=== PATIENT | female | born 1960 | race African-American/Black ===

== ENCOUNTER 2016-12-03 17:04 | Outpatient (RCR) | payer OTHER | END 2016-12-08 | disposition home or self-care (01) | LOC: PTY 17:04 | DX: M72.2 Plantar fascial fibromatosis (principal); M76.00 Gluteal tendinitis, unspecified hip; M76.9 Unspecified enthesopathy, lower limb, excluding foot ==

== ENCOUNTER 2016-12-15 16:55 | Outpatient (RCR) | payer OTHER | END 2017-01-05 | disposition home or self-care (01) | LOC: PTY 16:55 | DX: M72.2 Plantar fascial fibromatosis (principal); M76.00 Gluteal tendinitis, unspecified hip; M76.9 Unspecified enthesopathy, lower limb, excluding foot ==

== ENCOUNTER → 2017-10-07 | Outpatient (RCR) | payer OTHER | END | disposition home or self-care (01) | LOC: PTY 16:00 | DX: M76.9 Unspecified enthesopathy, lower limb, excluding foot (principal); M67.02 Short Achilles tendon (acquired), left ankle; M67.01 Short Achilles tendon (acquired), right ankle ==

== ENCOUNTER 2017-11-04 16:00 | Outpatient (RCR) | payer OTHER | END 2017-11-07 | disposition home or self-care (01) | LOC: PTY 16:00 | DX: M76.9 Unspecified enthesopathy, lower limb, excluding foot (principal); M67.02 Short Achilles tendon (acquired), left ankle; M67.01 Short Achilles tendon (acquired), right ankle ==

== ENCOUNTER 2017-11-18 16:00 | Outpatient (RCR) | payer OTHER | END 2017-12-08 | disposition home or self-care (01) | LOC: PTY 16:00 | DX: M76.9 Unspecified enthesopathy, lower limb, excluding foot (principal); M67.02 Short Achilles tendon (acquired), left ankle; M67.01 Short Achilles tendon (acquired), right ankle ==

== ENCOUNTER 2019-08-28 10:34 | Emergency (ER) | payer OTHER ==
[~2019-08-28] VITALS: Ht 170.2 cm; Wt 80.7 kg
[2019-08-28] MEDS ORDERED: FISH OIL 1,0001 EAC1 ORAL (10:50)
[2019-08-28] MEDS ORDERED: VITAMIN D1000 UNI1 ORAL (10:50)
[2019-08-28] MEDS ORDERED: COLLAGEN PROTEIN (10:50)
[2019-08-28] MEDS ORDERED: PROBIOTIC1 EAC5 PO (10:50)
--- NOTE | 2019-08-28 11:05 | NUR ---
ED Nurse Note: pt presents to ED c/o left arm tingling since yesterday. pt states that she woke up yesterday and her left arm felt like "she slept on it and it fell asleep." pt reports the tingling going from her left shoulder into her fingers and that it has not stopped. pt denies any SOB or N/V. She has a history of thyroid problems but unsure if it is high or low.
[2019-08-28 11:09] VITALS: BP 148/71
[2019-08-28 12:03] LABS: BASOPHILS % (AUTO) 1.7 % (0.0-2.0); EOSINOPHILS % (AUTO) 2.9 % (0.0-3.0); HEMATOCRIT 36.8 % (37.0-47.0); HEMOGLOBIN 11.7 G/DL (12.0-16.0); LYMPHOCYTES % (AUTO) 46.8 % (20.0-45.0); MEAN CORPUSCULAR VOLUME 89 FL (80-99); MONOCYTES % (AUTO) 8.4 % (1.0-10.0); NEUTROPHILS % (AUTO) 40.3 % (45.0-75.0); PLATELET COUNT 214 K/UL (150-450); RED BLOOD COUNT 4.13 M/UL (4.20-5.40); RED CELL DISTRIBUTION WIDTH 12.6 % (11.6-14.8); WHITE BLOOD COUNT 4.7 K/UL (4.8-10.8)
[2019-08-28 12:14] LABS: ANION GAP 6 mmol/L (5-15); BLOOD UREA NITROGEN 17 mg/dL (7-18); CALCIUM 9.2 MG/DL (8.5-10.1); CARBON DIOXIDE 29 MMOL/L (21-32); CHLORIDE 106 MMOL/L (98-107); CREATININE 0.8 MG/DL (0.55-1.30); POTASSIUM 4.1 MMOL/L (3.5-5.1); SODIUM 141 MMOL/L (136-145)
[2019-08-28 12:27] LABS: ALANINE AMINOTRANSFERASE 30 U/L (12-78); ALBUMIN 3.5 G/DL (3.4-5.0); ALBUMIN/GLOBULIN RATIO 0.9 (1.0-2.7); ALKALINE PHOSPHATASE 62 U/L (46-116); ASPARTATE AMINO TRANSFERASE 18 U/L (15-37); BILIRUBIN,TOTAL 0.3 MG/DL (0.2-1.0); CKMB 1.2 NG/ML (0.0-3.6); CREATINE KINASE 180 U/L (26-308)
--- NOTE | 2019-08-28 12:27 | Diagnostic Imaging Report ---
Indication: Chest pain Technique: One view of the chest Comparison: none Findings: The heart size is upper limits of normal. Lungs and pleural spaces are clear Impression: No acute process
[2019-08-28 13:10] VITALS: BP 148/71
--- NOTE | 2019-08-28 13:10 | NUR ---
ER DISCHARGE NOTE: Patient is cleared to be discharged per ERMD, pt is aox4, on room air, with stable vital signs. pt was given dc instructions, pt was able to verbalize understanding, pt id band and iv site removed without complications. pt is able to ambulate with steady gait. pt took all belongings.
--- NOTE | 2019-08-28 14:55 | Emergency Room Report ---
History of Present Illness General Chief Complaint: General Complaint Source: Patient Present Illness HPI 59-year-old female presents ED for evaluation. Complaining of tingling sensation in the left arm which started yesterday. Radiating to the neck and to the chest. Denies chest pain. Denies any slurred speech or facial droop. Denies any arm weakness. Denies any neck pain. No other aggravating relieving factors. Denies any other associated symptoms Allergies: Coded Allergies: No Known Allergies (Unverified , 12/02/16) Patient History Past Medical History: none Past Surgical History: none Pertinent Family History: none Social History: Denies: smoking, alcohol use, drug use Last Menstrual Period: menopause Now: No Immunizations: UTD Reviewed Nursing Documentation: PMH: Agreed; PSxH: Agreed Nursing Documentation-PMH Past Medical History: No History, Except For Review of Systems All Other Systems: negative except mentioned in HPI Physical Exam Vital Signs Date Time Temp Pulse Resp B/P (MAP) Pulse Ox O2 Delivery O2 Flow Rate FiO2 08/28/19 10:43 97.7 63 14 148/71 (96) 99 Room Air Sp02 EP Interpretation: reviewed, normal General Appearance: no apparent distress, alert, GCS 15, non-toxic Head: normocephalic, atraumatic Eyes: bilateral eye normal inspection, bilateral eye PERRL ENT: hearing grossly normal, normal pharynx, no angioedema, normal voice Neck: full range of motion, supple/symm/no masses Respiratory: chest non-tender, lungs clear, normal breath sounds, speaking full sentences Cardiovascular #1: regular rate, rhythm, no edema Cardiovascular #2: 2+ carotid (R), 2+ carotid (L), 2+ radial (R), 2+ radial (L) , 2+ dorsalis pedis (R), 2+ dorsalis pedis (L) Gastrointestinal: normal bowel sounds, non tender, soft, non-distended, no guarding, no rebound Rectal: deferred Genitourinary: normal inspection, no CVA tenderness Musculoskeletal: back normal, gait/station normal, normal range of motion, non- tender Neurologic: alert, oriented x3, responsive, motor strength/tone normal, sensory intact, speech normal Psychiatric: judgement/insight normal, memory normal, mood/affect normal, no suicidal/homicidal ideation Reflexes: 3+ bicep (R), 3+ bicep (L), 3+ tricep (R), 3+ tricep (L), 3+ knee (R) , 3+ knee (L) Lymphatic: no adenopathy Medical Decision Making Diagnostic Impression: Primary Impression: Tingling of left upper extremity ER Course Hospital Course 59 yo F presents to ED c/o tingling in LUE Differential diagnoses include: neuropathy, MD/unstable angina, cervical radiculopathy Clinical course Patient placed on stretcher. After initial history and physical I ordered labs , EKG, chest x-ray. labs reviewed- all electrolytes normal, troponins negative, no leukocytosis, hemoglobin/hematocrit stable EKG - NSR, no acute ischemic changes interpreted by me Chest x-ray-no cardiomegaly, no rib fracture, no pneumothorax, no acute process I discussed findings with the patient. Negative troponin. Normal EKG. Vitals stable. No cardiac risk factors. Likely cervical radiculopathy. Will discharge to home. Safe for discharge for close outpatient follow-up. States she has a PMD I. I feel this is a highly complex case requiring extensive working including EKG/Rhythm strip, Xray/CT/US, Blood/urine lab work, repeat exams while in ED, and administration of strong opiates/narcotics for pain control, admission to hospital or close patient follow up. Diagnosis - tingling of upper extremity Stable and discharged to home. Instructed to followup with PMD. Return to ED if symptoms recur or worsen Labs Test 08/28/19 11:52 White Blood Count 4.7 K/UL (4.8-10.8) Red Blood Count 4.13 M/UL (4.20-5.40) Hemoglobin 11.7 G/DL (12.0-16.0) Hematocrit 36.8 % (37.0-47.0) Mean Corpuscular Volume 89 FL (80-99) Mean Corpuscular Hemoglobin 28.3 PG (27.0-31.0) Mean Corpuscular Hemoglobin Concent 31.8 G/DL (32.0-36.0) Red Cell Distribution Width 12.6 % (11.6-14.8) Platelet Count 214 K/UL (150-450) Mean Platelet Volume 8.0 FL (6.5-10.1) Neutrophils (%) (Auto) 40.3 % (45.0-75.0) Lymphocytes (%) (Auto) 46.8 % (20.0-45.0) Monocytes (%) (Auto) 8.4 % (1.0-10.0) Eosinophils (%) (Auto) 2.9 % (0.0-3.0) Basophils (%) (Auto) 1.7 % (0.0-2.0) Sodium Level 141 MMOL/L (136-145) Potassium Level 4.1 MMOL/L (3.5-5.1) Chloride Level 106 MMOL/L (98-107) Carbon Dioxide Level 29 MMOL/L (21-32) Anion Gap 6 mmol/L (5-15) Blood Urea Nitrogen 17 mg/dL (7-18) Creatinine 0.8 MG/DL (0.55-1.30) Estimat Glomerular Filtration Rate > 60 mL/min (>60) Glucose Level 84 MG/DL (74-106) Calcium Level 9.2 MG/DL (8.5-10.1) Total Bilirubin 0.3 MG/DL (0.2-1.0) Aspartate Amino Transf (AST/SGOT) 18 U/L (15-37) Alanine Aminotransferase (ALT/SGPT) 30 U/L (12-78) Alkaline Phosphatase 62 U/L (46-116) Total Creatine Kinase 180 U/L (26-308) Creatine Kinase MB 1.2 NG/ML (0.0-3.6) Creatine Kinase MB Relative Index 0.6 Troponin I 0.000 ng/mL (0.000-0.056) Total Protein 7.3 G/DL (6.4-8.2) Albumin 3.5 G/DL (3.4-5.0) Globulin 3.8 g/dL Albumin/Globulin Ratio 0.9 (1.0-2.7) EKG Diagnostic Results Rate: normal Rhythm: NSR ST Segments: no acute changes ASA given to the pt in ED: No Rhythm Strip Diag. Results EP Interpretation: yes Rhythm: NSR, no PVC's, no ectopy Chest X-Ray Diagnostic Results Chest X-Ray Diagnostic Results : Chest X-Ray Ordered: Yes # of Views/Limited/Complete: 1 View Indication: Chest Pain EP Interpretation: Yes Interpretation: no consolidation, no effusion, no pneumothorax, no acute cardiopulmonary disease Impression: No acute disease Electronically Signed by: Electronically signed by Miguel Alexander MD Last Vital Signs Date Time Temp Pulse Resp B/P (MAP) Pulse Ox O2 Delivery O2 Flow Rate FiO2 08/28/19 13:10 97.7 72 14 148/71 99 Room Air Status: improved Disposition: HOME, SELF-CARE Condition: Stable Patient Instructions: Cervical Radiculopathy, [id number] Miguel Alexander MD Aug 28, 2019 14:54
--- NOTE | 2019-08-29 17:52 | Cardiology Report ---
APPROVED REPORT EKG Measurement Heart [id number] Sinus bradycardia Cannot rule out Anterior infarct, age undetermined Abnormal ECG
== END 2019-08-28 13:10 | disposition home or self-care (01) ==
LOC: EMR 11:57
DX: R20.2 Paresthesia of skin (principal); R07.9 Chest pain, unspecified
CPT/HCPCS: 36415; 71045; 80053; 82550; 82553; 84484; 85025; 93005; 99284